=== PATIENT | male | born 1980 | race Caucasian/White ===

== ENCOUNTER 2021-02-08 10:17 | Outpatient (CLI) | payer OTHER, SELFPAY | END 2021-02-08 10:18 | disposition home or self-care (01) | LOC: ANHCOVIDVC 10:17 | PROVIDERS: PCP Nurse Practitioner Family | DX: Z23 Encounter for immunization (principal) | CPT/HCPCS: 0001A; 91300 ==

== ENCOUNTER 2021-03-01 10:09 | Outpatient (CLI) | payer OTHER, SELFPAY | END 2021-03-01 10:10 | disposition home or self-care (01) | LOC: ANHCOVIDVC 10:09 | PROVIDERS: PCP Nurse Practitioner Family | DX: Z23 Encounter for immunization (principal) | CPT/HCPCS: 0002A; 91300 ==

== ENCOUNTER 2021-07-26 14:22 | Emergency (ER) | payer OTHER, SELFPAY ==
--- NOTE | 2021-07-26 14:35 | ED.GENADULT ---
HPI - General Adult General Chief complaint: Upper Respiratory Infection Stated complaint: sinus infection Source: patient and family Mode of arrival: ambulatory Limitations: no limitations History of Present Illness HPI narrative: Patient is a 41-year-old male who presents to the [facility] via POV for evaluation of upper respiratory symptoms that have been present for 1 week. Additionally, patient reports dry cough, chest congestion, rhinorrhea, muffled hearing, green nasal drainage, sinus pain, and sinus pressure. He has taken Sudafed and leftover amoxicillin. He states he took 3 tabs over the past 2 days. Nothing improves symptoms. Laying down worsens symptoms. Patient reports he is fully vaccinated against Covid and denies known exposure to sick contacts. He is requesting a rapid Covid test today since he has 4 children at home. Related Data Allergies Allergy/AdvReac Type Severity Reaction Status Date / Time No Known Allergies Allergy Verified 07/26/21 15:23 Review of Systems Review of Systems: CONSTITUTIONAL: Denies fever, chills, or sweats. EYES: Denies visual changes, redness, or discharge. ENT: Denies rhinorrhea, sore throat, drooling, voice changes, sneezing, or otalgia. CARDIOVASCULAR: Denies chest pain, palpitations, or edema. RESPIRATORY: Denies sputum production, wheezing, dyspnea, cyanosis. GASTROINTESTINAL: Denies abdominal pain, nausea, vomiting, or diarrhea. SKIN: Denies rash or itching. MUSCULOSKELETAL: Denies back pain, joint pain, or myalgia. NEUROLOGIC: Denies headache, numbness, or weakness. PMFSH Comments I have reviewed and agree with the patient's past medical, surgical, social, and family hx as documented by the RN. There is no relevant family history pertinent to the presenting complaint. Exam Narrative: GENERAL: Well-appearing, well-nourished, and in no acute distress. HEAD: Normocephalic, atraumatic. No sinus tenderness or facial swelling appreciated. EYES: PERRLA and EOMI. No evidence of erythema, swelling, or drainage. ENT: Bilateral external ears and ear canals normal. Bilateral TMs are normal. No TM perforation. Nares clear, no rhinorrhea or epistaxis. Bilateral turbinates without erythema/ swelling. Mucous membranes moist and pink. Uvula is midline without erythema and swelling. No evidence of petechial rash, cobblestoning, lesions, ulcers, erythema, swelling, exudates, peritonsillar abscess, tenting, or drooling. Breath odor and voice normal. NECK: Supple. No Lymphadenopathy or nuchal rigidity appreciated. CHEST: Bilateral lung alonzo are clear to auscultation. No respiratory distress. No evidence of cough or pleuritic cp upon examination. HEART: Regular rate and rhythm. No murmur, gallop, or rub heard. EXTREMITIES: Normal range of motion. No edema. SKIN: Warm, dry, no rash. NEURO: No focal deficits. Alert and oriented x3. Special observations: Smiling. Complaints inconsistent with exam findings. Medical Decision Making Differential Diagnosis Differential Diagnosis: Allergic rhinitis, ABRS, acute viral sinusitis, strep pharyngitis, nasopharyngitis, bronchitis, pneumonia, AOM, otitis externa, viral URI, influenza Medical Records Medical records reviewed: Yes I reviewed the external patient's medical records. Vital Signs Vital Signs: Reviewed Lab Data Lab results reviewed: Yes I reviewed the patient's lab results. Lab results narrative: Rapid Covid: Negative Critical Care Time Critical Care Time Critical Care Time: No Discharge Plan Discharge Clinical Impression: Acute sinusitis, unspecified Qualifiers: Sinusitis location: unspecified location Recurrence: not specified as recurrent Qualified Code(s): J01.90 - Acute sinusitis, unspecified Allergic rhinitis Qualifiers: Allergic rhinitis trigger: unspecified Allergic rhinitis seasonality: seasonal Qualified Code(s): J30.2 - Other seasonal allergic rhinitis Patient Disposition: Home, Self-Care Condition: Stabl
[2021-07-26 14:36] VITALS: BP 136/79; PULSE 80; RESP 16; TEMP 35.8; O2SAT 99
== END 2021-07-26 15:45 | disposition home or self-care (01) ==
PROVIDERS: Emergency Provider Nurse Practitioner Family
DX: J01.90 Acute sinusitis, unspecified (principal); J30.2 Other seasonal allergic rhinitis; Z20.822 Contact with and (suspected) exposure to COVID-19
CPT/HCPCS: 87426; 99213; C9803; G0463

== ENCOUNTER 2022-01-24 18:32 | Emergency (ER) | payer OTHER, SELFPAY ==
[2022-01-24 18:41] VITALS: BP 145/94; PULSE 76; RESP 18; TEMP 37.2; O2SAT 97
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
[2022-01-24] MEDS: TETANUS,DIPHTHERIA,AC PERTUSSIS ADULT (0.5 ML) BOOSTRIX IM (18:59)
== END 2022-01-24 19:13 | disposition home or self-care (01) ==
PROVIDERS: Emergency Provider Nurse Practitioner Family; PCP Nurse Practitioner Family
DX: T23.201A Burn of second degree of right hand, unspecified site, initial encounter (principal); X19.XXXA Contact with other heat and hot substances, initial encounter; Z23 Encounter for immunization
CPT/HCPCS: 90471; 90715; 99213; G0463

== ENCOUNTER 2022-06-09 10:08 | Emergency (ER) | payer OTHER, SELFPAY ==
[2022-06-09 10:18] VITALS: BP 134/96; PULSE 69; RESP 16; TEMP 36.7; O2SAT 100
--- NOTE | 2022-06-09 10:47 | ED.URI ---
HPI - URI/Sore Throat General Chief Complaint: Upper Respiratory Infection Stated Complaint: Headache,Fever,Lightheaded,Chills Time Seen by Provider: 06/09/22 10:40 History of Present Illness HPI Narrative: Ty Connors, is a 41 yo male, with no PMH who comes to the [facility] care with a fever of 103, ear pain, severe headache that started yesterday and dizziness with movement. Reports sudden onset of feeling ill. demanded a flu test even though told is out of season Related Data Allergies Allergy/AdvReac Type Severity Reaction Status Date / Time No Known Allergies Allergy Verified 06/09/22 10:14 Review of Systems Review of Systems: CONSTITUTIONAL: reports fever, chills, sweats.has headache, dizziness EYES: Denies visual changes, redness, discharge. ENT: Denies rhinorrhea, congestion, sore throat, otalgia. CARDIOVASCULAR: Denies chest pain, palpitations, edema. RESPIRATORY: Denies dyspnea, wheezing, cough GASTROINTESTINAL: Denies abdominal pain, nausea, vomiting, diarrhea. GENITOURINARY: Denies dysuria, hematuria, abnormal discharge SKIN: Denies rash or itching. NEUROLOGIC: Denies numbness, or focal weakness. PSYCHIATRIC: Denies anxiety or depression. PMFSH Comments At time of signature, I agree with nursing past medical, surgical, social and family history. There is no relevant family history pertinent to the presenting complaint. Exam Narrative: GENERAL: This is a well-nourished, well-developed patient, in moderate distress. HEAD: normocephalic, atraumatic. EYES: Sclera clear/white. Vision is grossly intact. EARS: External ears normal, auditory canals clear and without drainage. Hearing grossly intact. NOSE: External nose normal without nasal discharge, nares without redness, no rhinorrhea. THROAT: Mucous membranes moist, posterior pharynx erythema NECK: Neck supple, non-tender CARDIOVASCULAR: Regular rate and rhythm without murmurs, gallops, or rubs. RESPIRATORY: Clear to auscultation. Breath sounds equal bilaterally. No wheezes, rales, or rhonchi. GASTROINTESTINAL: not done SKIN: warm, intact with no suspicious lesions or rash, good texture and turgor. NEURO: awake, alert, and oriented to person, place and time. There were no obvious focal neurologic abnormalities. Steady gait EXTREMITIES: Normal range of motion. BACK: Nontender without deformity Course Course Emergency Course: pt tested for flu and covid- both negative started on prednisone, zyrtec, zofran. rotate tylenol and ibuprofen polymixin ear drops Level of Care: Express Care Visit Vital Signs Vital signs: Vital Signs Temperature 98.0 F 06/09/22 10:18 Pulse Rate 69 06/09/22 10:18 Respiratory Rate 16 06/09/22 10:18 Blood Pressure 134/96 H 06/09/22 10:18 Pulse Oximetry 100 06/09/22 10:18 Oxygen Delivery Room Air 06/09/22 10:18 Temperature 98.0 F 06/09/22 10:18 Pulse Rate 69 06/09/22 10:18 Respiratory Rate 16 06/09/22 10:18 Blood Pressure 134/96 H 06/09/22 10:18 Pulse Oximetry 100 06/09/22 10:18 Oxygen Delivery Room Air 06/09/22 10:18 MDM - URI/Sore Throat Differential Diagnosis Differential diagnosis: Likely upper respiratory infection, viral infection, bronchitis, influenza, pharyngitis and other Lab Data Labs: Influenza A Screen Negative Reference Range: Negative Influenza B Screen Negative Reference Range: Negative Discharge Plan Discharge Clinical Impression: Upper respiratory infection Qualifiers: URI type: unspecified URI Qualified Code(s): J06.9 - Acute upper respiratory infection, unspecified Patient Disposition: Home, Self-Care Condition: Stable Instructions: Upper Respiratory Infection (DC) Additional Instructions: use solomontamir lorenzour for dizziness started on steroids, polymixin, zyrtec, rotate ibuprofen and tylenol hydrate well Pre
[2022-06-09] MEDS: MECLIZINE HCL 25 MG TABLET PO (10:50)
[2022-06-09] MEDS: ONDANSETRON HCL ODT 4 MG TABLET PO (10:50)
== END 2022-06-09 11:05 | disposition home or self-care (01) ==
PROVIDERS: Emergency Provider Nurse Practitioner; PCP Nurse Practitioner Family
DX: J06.9 Acute upper respiratory infection, unspecified (principal); Z20.822 Contact with and (suspected) exposure to COVID-19; Z86.16 Personal history of COVID-19; Z96.698 Presence of other orthopedic joint implants
CPT/HCPCS: 87426; 87804; 99213; A9270; C9803; G0463

== ENCOUNTER 2023-06-24 10:05 | Emergency (ER) | payer OTHER, SELFPAY ==
--- NOTE | 2023-06-24 10:17 | ED.GENADULT ---
HPI - General Adult General Chief complaint: Upper Respiratory Infection Stated complaint: Cough Time Seen by Provider: 06/24/23 10:17 Source: patient Mode of arrival: ambulatory Limitations: no limitations History of Present Illness HPI narrative: 42-year-old male patient presents to the [facility] with complaints of cough for the past 2 weeks. Denies fevers, body aches or chills. Denies any chest pain, shortness of breath denies any abdominal pain, nausea, vomiting or diarrhea. Patient states he has not really taking any medication for his symptoms. Patient states he does travel a lot. Patient states that the cough is worse when he lays down at night and when he gets up in the morning. Patient states he has been coughing up some green and brown phlegm at times. Related Data Allergies Allergy/AdvReac Type Severity Reaction Status Date / Time No Known Allergies Allergy Verified 06/24/23 10:20 Review of Systems Review of Systems: CONSTITUTIONAL: Denies fever, chills, or sweats. EYES: Denies visual changes, redness, or discharge. ENT: Positive rhinorrhea, congestion, denies sore throat, or otalgia. CARDIOVASCULAR: Denies chest pain, palpitations, or edema. RESPIRATORY: positive cough denies dyspnea. GASTROINTESTINAL: Denies abdominal pain, nausea, vomiting, or diarrhea. GENITOURINARY: Denies dysuria or hematuria. SKIN: Denies rash or itching. MUSCULOSKELETAL: Denies back pain, joint pain, or myalgia. NEUROLOGIC: Denies headache, numbness, or weakness. PSYCHIATRIC: Denies anxiety or depression. [facility] Surgical History Surgical History (Updated 06/24/23 @ 10:18 by TONY Wolfe) H/O Spinal surgery History of orthopedic surgery left knee and clavicle replacement Comments At the time of my signature I agree with nursing past medical history, surgical, social, and family history. There is no relevant family history pertinent to the presenting complaint. Exam Narrative: GENERAL: Well-appearing, well-nourished, and in no acute distress. HEAD: Normocephalic, atraumatic. EYES: PERRLA and EOMI. ENT: Nares with erythema edema noted bilaterally, no rhinorrhea or epistaxis. Mucous membranes moist. posterior pharynx with no erythema, tonsillar enlargement, exudates or lesions present. NECK: Supple. No lymphadenopathy CHEST: Clear to auscultation. No respiratory distress. HEART: Regular rate and rhythm. No murmur heard. Normal peripheral pulses. ABDOMEN: Soft, nontender, nondistended, normal active bowel sounds. EXTREMITIES: Normal range of motion. No edema. SKIN: Warm, dry, no rash. NEURO: No focal deficits. Alert and oriented x3. Course Course Level of Care: Express Care Visit Vital Signs Vital signs: Vital Signs Temperature 36.5 C 06/24/23 10:39 Pulse Rate 67 06/24/23 10:39 Respiratory Rate 18 06/24/23 10:39 Blood Pressure 143/87 H 06/24/23 10:39 Pulse Oximetry 100 06/24/23 10:39 Oxygen Delivery Room Air 06/24/23 10:39 Temperature 36.5 C 06/24/23 10:39 Pulse Rate 67 06/24/23 10:39 Respiratory Rate 18 06/24/23 10:39 Blood Pressure 143/87 H 06/24/23 10:39 Pulse Oximetry 100 06/24/23 10:39 Oxygen Delivery Room Air 06/24/23 10:39 vital signs reviewed. The patient has been informed that they may have pre-hypertension or Hypertension based on a BP reading in the department. I recommend that the patient call the primary care provider listed on their discharge instructions or a physician of their choice this week to arrange follow up for further evaluation of possible pre-hypertension or Hypertension Medical Decision Making MDM Narrative Medical decision making narrative: Plan care for patient is to discharge home with short course of steroids to help with the sinus drainage, daily antihistamine and some Tessalon Perles for the cough. Discussed with patient this most likely viral most likely caused by allergies no antibiotic is needed at this time.
[2023-06-24 10:39] VITALS: BP 143/87; PULSE 67; RESP 18; TEMP 36.5; O2SAT 100
== END 2023-06-24 11:35 | disposition home or self-care (01) ==
PROVIDERS: Emergency Provider Nurse Practitioner Family; PCP Nurse Practitioner Family
DX: J06.9 Acute upper respiratory infection, unspecified (principal)
CPT/HCPCS: 99213; G0463

== ENCOUNTER 2025-05-27 11:32 | Emergency (ER) | payer OTHER, SELFPAY ==
--- NOTE | ~2025-05-27 | XR_ITS ---
HISTORY: neck pain, glf, hx fusion COMPARISON: None TECHNIQUE: 3 views of the cervical spine were performed FINDINGS: Visualization of the cervical spine to the superior endplate of T1 (including swimmer's view). Straightening of the normal curvature of the cervical spine is identified. No prevertebral soft tissue swelling is appreciated. No acute compression fracture is noted. Anterior fixation is identified at the levels of C6 and C7 with intervertebral disc spacer The dens is equidistant between the pillars, without asymmetry. Air column within the trachea is midline. The visualized portions of the bilateral upper lung alonzo are unremarkable. IMPRESSION: Straightening of the normal curvature of the cervical spine without acute compression fracture, as de tailed above. Reviewed, dictated and finalized at location A. IMPRESSION: Straightening of the normal curvature of the cervical spine without acute compr ession fracture, as detailed above.
[2025-05-27 11:42] VITALS: BP 106/78; PULSE 78; RESP 16; TEMP 36.1; O2SAT 100
--- OUTSIDE RECORDS SUMMARY | 2025-05-27 11:55 | XMS_ITS | Clinical Summary ---
Author Organization [facility] Address [address] [place] [address] Care Team Providers Care Training Personnel Supervisor Name Role Phone Cheyenne Klein UPHOLSTERER OUTSIDE Primary Care Provider + Allergies No known active allergies Medications cholecalciferol (VITAMIN D-3) 50,000 unit capsuleIndicati ons:Vitamin D Deficiency Take 1 capsule (50,000 Units total) by mouth once a week for 8 doses 8 capsule 4 Active HYDROcodone-melonie taminophen (NORCO) 10-325 mg per tabletIndicatio ns:Pain Take 1 tablet by mouth every 4 (four) hours as needed for pain 40 tablet 4 Active Additional Information Patient not taking.Reported on 12/15/2024 cyclobenzaprine (FLEXERIL) 10 mg tablet Take 1 tablet (10 mg total) by mouth 3 (three) times a day as needed for muscle spasms 42 tablet 4 Active Additional Information Patient not taking.Reported on 12/15/2024 Active Problems Problem Noted Date Diagnosed Date Herniated disc, cervical 03/31/2024 Numbness and tingling in right hand 03/31/2024 Complex tear of medial menis cus of right knee as current injury 05/24/2021 Overview (05/24/2021): Added automatically from request for surgery [id number] Acute bronchitis 05/23/2021 External hordeolum 05/23/2021 Furuncle of groin 05/23/2021 Osteoarthritis of cervical spine 12/03/2017 Encounters Date Type Department Care Team Description 04/09/2025 Telephone [facility] Scheduling [address] [place] [address] Frieda Fisher from Last 3 Months Surgical History Surgery Date Site/Laterality Comments EPIDURAL INJECTION LUMBOSACRAL 05/11/2015 N/A DISCECTOMY 2011, 2012, 2012 L5 x3 surgeries MENISCUS SURGERY 10/29/1996 - 10/28/1997 Left x2 CLAVICLE SURGERY 10/29/2003 - 10/28/2004 Left metal plate EPIDURAL INJECTION RIGHT CERVICAL THORACIC 1 LEVEL 03/18/2024 Right Medical History Medical History Date Comments Herniated cervical disc Osteoarthritis of cervical spine Family History Medical History Relation Name Comments Cancer Father Family history of malignant neoplasm - (Added by TW Conv) Anesthesia problems Neg Hx Relation Name Status Comments Father Social History Tobacco Use Types Packs/Day Years Used Date Smoking Tobacco: Never Smokeless Tobacco: Never Tobacco Cessation:Counseling Given: No AUDIT-C Answer Date Recorded Q1: How often do you have a drink containing alc ohol? 2-3 times a week 10/10/2024 Q2: How many drinks containi ng alcohol do you have on a typical day when you are drinking? 1 or 2 10/10/2024 Q3: How often do you have si x or more drinks on one occasion? Never 10/10/2024 Personal Safety Answer Date Recorded Have you ever been in or are you currently in a harmful physical or emotional relationship or is someone making you feel afraid or unsafe? Denies 10/20/2024 Sex and Gender Information Value Date Recorded Sex Assigned at Not on file Legal Sex Male 9:07 PM DRAMA CRITIC Gender Identity Not on file Sexual Orientation Not on file Obstetrics History Last Filed Vital Signs Vital Sign Reading Time Taken Comments Blood Pressure 139/92 10/20/2024 2:00 PM DRAMA CRITIC Pulse 64 10/20/2024 2:00 PM DRAMA CRITIC Temperature 36.3 C (97.4 F) 10/20/2024 10:50 AM DRAMA CRITIC Respiratory Rate 17 10/20/2024 2:00 PM DRAMA CRITIC Oxygen Saturation 96% 10/20/2024 2:00 PM DRAMA CRITIC Inhaled Oxygen Concentration - - Weight 80.3 kg (177 lb) 12/15/2024 3:18 PM DRAMA CRITIC Height 175.3 cm (5' 9) 12/15/2024 3:18 PM DRAMA CRITIC Body Mass Index 26.14 12/15/2024 3:18 PM DRAMA CRITIC Plan of Treatment Health Maintenance Due Date Last Done Comments Depression Screening 1980 Hepatitis C Screening 1980 Varicella Vaccines (1 of 2 - 13+ 2-dose series) 1993 Hepatitis B Screening 1998 Regular Well Visit/Exam 18-64 1998 HPV Vaccines (1 - 3-dose SCD M series) 2007 Influenza Vaccine (#1) 2025 DTaP/Tdap/Td Vaccine (2 - Td or Tdap) 01/10/2028 01/09/2018 Pneumococcal vaccine <65 Aged Out No longer eligible based on patient's age to complete this topic Medical Devices Implanted Type Area Landscape Architect Device Identifier Shelf Expiration Date Model / Serial / Lot [employer] Graft Bone Spacer Cervical Fd [employer] [id number] Allograft [id number] - [id number] - [id number] Implanted:Qty: 1 on 10/20/2024 by Lencho Barnett MD at [facility] N/A: Spine Cervical [employer] Inc 08/21/2026 [id number] / [id number] / [employer] Plate Bone Level-1 Cervical Spine 12mm 300-0112 - [id number] Implanted:Qty: 1 on 10/20/2024 by Lencho Barnett MD at [facility] N/A: Spine Cervical [employer] 300-0112 / / [employer] Screw Spinal Anterior Cervical Self Drilling Solid 4x16mm Titanium [id number] - [id number] Implanted:Qty: 4 on 10/20/2024 by Lencho Barnett MD at [facility] N/A: Spine Cervical [employer] [id number] / / Insurance AETNA [facility] HMO [facility] HMO [facility] HMO Care Teams Training Personnel Supervisor Relationship Specialty Start Date End Date Cheyenne Klein NP PCP - General Nurse Practitioner 05/03/21
--- OUTSIDE RECORDS SUMMARY | 2025-05-27 11:55 | XMS_ITS | Referral Summary ---
Author Organization [facility] Address [address] [place] [address] Care Team Providers Care Chief Data Officer Name Role Phone Cheyenne Klein CHEF DE PARTIE Primary Care Provider + Encounters Date Type Department Care Team Description 04/09/2025 Telephone [facility] Scheduling [address] [place] [address] Frieda Fisher from Last 3 Months Allergies No known active allergies Medications cholecalciferol [...] (05/24/2021): Added automatically from request for surgery [id number] Acute bronchitis 05/23/2021 External hordeolum 05/23/2021 Furuncle of groin 05/23/2021 Osteoarthritis of cervical spine 12/03/2017 Social History Tobacco Use Types Packs/Day Years [...] on file Legal Sex 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 TEST ENGINEER Gender Identity Not on file Sexual Orientation Not on file Last Filed Vital Signs Vital Sign Reading Time Taken Comments Blood Pressure 139/92 10/20/2024 2:00 PM ELECTRONICS TEST ENGINEER Pulse 64 10/20/2024 2:00 PM ELECTRONICS TEST ENGINEER Temperature 36.3 C (97.4 F) 10/20/2024 10:50 AM ELECTRONICS TEST ENGINEER Respiratory Rate 17 10/20/2024 2:00 PM ELECTRONICS TEST ENGINEER Oxygen Saturation 96% 10/20/2024 2:00 PM ELECTRONICS TEST ENGINEER Inhaled Oxygen Concentration - - Weight 80.3 kg (177 lb) 12/15/2024 3:18 PM ELECTRONICS TEST ENGINEER Height 175.3 cm (5' 9) 12/15/2024 3:18 PM ELECTRONICS TEST ENGINEER Body Mass Index 26.14 12/15/2024 3:18 PM ELECTRONICS TEST ENGINEER Plan of Treatment Not on file Medical Devices Implanted Type Area Manager Reimbursement Device Identifier Shelf Expiration Date Model / Serial / Lot [employer] Graft Bone Spacer Cervical Fd [employer] [id number] Allograft [id number] - [id number] - [id number] Implanted:Qty: 1 on 10/20/2024 by Lencho Barnett MD at [facility] N/A: Spine Cervical [employer] 08/21/2026 [id number] / [id number] / [employer] Plate Bone Level-1 Cervical Spine 12mm 300-0112 - [id number] Implanted:Qty: 1 on 10/20/2024 by Lencho Barnett MD at [facility] N/A: Spine Cervical [employer] 300-0112 / / [employer] Screw Spinal Anterior Cervical Self Drilling Solid 4x16mm Titanium [id number] - [id number] Implanted:Qty: 4 on 10/20/2024 by Lencho Barnett MD at [facility] N/A: Spine Cervical [employer] [id number] / / Insurance [facility] [employer] HMO AET [place] HMO AETNA [facility] HMO Care Teams Chief Data Officer Relationship Specialty Start Date End Date Cheyenne Klein NP PCP - General Nurse Practitioner 05/03/21
--- NOTE | 2025-05-27 12:06 | ED_ITS ---
HPI - Ear Problem General Chief complaint: Ear Stated complaint: LT Ear Pain / Neck and Back Pain Time Seen by Provider: 05/27/25 12:06 Source: patient Mode of arrival: ambulatory Limitations: no limitations History of Present Illness HPI Narrative: 44 y/o male presented for c/o left ear pain x2 days, says it is tender when touched. Denies ear drainge, tinnitus, dizziness, or nasal congestion. Pt also reports right sided neck pain. Onset yesterday while playing golf. Says after a swing he felt a pull. Since then the neck has become more stiffTook ibuprofen last night. denies numbness, tingling or weakness of the arms. Hx cervical fusion C6-7 last Sep. Complaint: ear pain Related Data Allergies Allergy/AdvReac Type Severity Reaction Status Date / Time No Known Allergies Allergy Verified 06/24/23 10:20 Review of Systems Review of Systems: CONSTITUTIONAL: Denies malaise, chills, or fever. EYES: Denies visual changes, redness, or discharge. ENT: Denies rhinorrhea, congestion, sinus pain, and sore throat. Reports ear p ain CARDIOVASCULAR: Denies chest pain, palpitations, or edema. RESPIRATORY: Denies cough or dyspnea. GASTROINTESTINAL: Denies abdominal pain, nausea, vomiting, diarrhea SKIN: Denies rash or itching. MUSCULOSKELETAL: reports neck pain NEUROLOGIC: Denies headache. All systems reviewed & are unremarkable except as noted in HPI and below PMFSH Surgical History Surgical History (Updated 06/24/23 @ 10:18 by TONY Wolfe) H/O Spinal surgery History of orthopedic surgery left knee and clavicle replacement Comments At time of signature, agree with nursing past medical, surgical, social and family history. There is no relevant family history pertinent to the presenting complaint Exam Narrative: GENERAL: Well-appearing and in no acute distress. HEAD: Normocephalic EYES: conjunctivae clear ENT: Nares clear. Mucous membranes moist. Right TM normal light reflex. Left TM erythematous, bulging and intact; canal erythematous with swelling noted, tende r, left tragal tenderness, no drainage. Oropharynx not erythematous without lesions. no drooling, no hoarseness, no trismus, uvula midline. NECK: No VPT. Decreased ROM due to pain. Mild right paraspinal tenderness with palpation. Supple. No lymphadenopathy CHEST: Clear to auscultation, breath sounds equal. HEART: Regular rate and rhythm. No murmur heard. SKIN: Warm, dry, no rash. NEURO: Alert and oriented x3. PSYCH: Normal mood and affect Course Course Emergency Course: Patient is aware of diagnosis, understands and agrees to treatment plan. Anticipatory guidance given. Patient agrees to follow-up as directed and is aware of reasons to seek care at the emergency department. Portions of this record may have been created with voice recognition software Level of Care: Express Care Visit Vital Signs Vital signs: Vital Signs Temperature 97.0 F L 05/27/25 11:42 Pulse Rate 78 05/27/25 11:42 Respiratory Rate 16 05/27/25 11:42 Blood Pressure 106/78 05/27/25 11:42 Pulse Oximetry 100 05/27/25 11:42 Oxygen Delivery Room Air 05/27/25 11:42 Temperature 97.0 F L 05/27/25 11:42 Pulse Rate 78 05/27/25 11:42 Respiratory Rate 16 05/27/25 11:42 Blood Pressure 106/78 05/27/25 11:42 Pulse Oximetry 100 05/27/25 11:42 Oxygen Delivery Room Air 05/27/25 11:42 Reviewed Medical Decision Making MDM Narrative Medical decision making narrative: Discussed physical exam findings consistent with left otitis media, will also treat for otitis externa given the swelling and tragal tenderness. Shared decision making, will get c-spine xray due to recent history of cervical fusion. Reviewed x-ray with patient. Reviewed RX. Advised supportive measures and signs/symptoms to go to the ER. Patient is appropriate for outpatient treatment and follow-up. Differential Diagnosis Differential Diagnosis: Coronavirus, strep pharyngitis, allergic rhinitis, upper respiratory tract infection, sinusitis, rhinosinusitis, nasopharyngitis, viral pharyngitis, otitis media, otitis externa, eustachian tube dysfunction, foreign body, cerumen impaction. Vital Signs Vital Signs: Vital Signs Temperature 97.0 F L 05/27/25 11:42 Pulse Rate 78 05/27/25 11:42 Respiratory Rate 16 05/27/25 11:42 Blood Pressure 106/78 05/27/25 11:42 Pulse Oximetry 100 05/27/25 11:42 Oxygen Delivery Room Air 05/27/25 11:42 Temperature 97.0 F L 05/27/25 11:42 Pulse Rate 78 05/27/25 11:42 Respiratory Rate 16 05/27/25 11:42 Blood Pressure 106/78 05/27/25 11:42 Pulse Oximetry 100 05/27/25 11:42 Oxygen Delivery Room Air 05/27/25 11:42 Imaging Data Radiologist's impression: Patient: Cole Trinidad : 1980 MR#: [id number] Age: 44 Acct:[id number] Loc: [facility] ADM Date: 05/27/25Attending Dr: HISTORY: neck pain, glf, hx fusion COMPARISON: None TECHNIQUE: 3 views of the cervical spine were performed FINDINGS: Visualization of the cervical spine to the superior endplate of T1 (including swimmer's view). Straightening of the normal curvature of the cervical spine is identified. No prevertebral soft tissue swelling is appreciated. No acute compression fracture is noted. Anterior fixation is identified at the levels of C6 and C7 with intervertebral disc spacer The dens is equidistant between the pillars, without asymmetry. Air column within the trachea is midline. The visualized portions of the bilateral upper lung alonzo are unremarkable. IMPRESSION: Straightening of the normal curvature of the cervical spine without acute compression fracture, Discharge Plan Discharge Clinical Impression: Otitis media Qualifiers: Otitis media type: suppurative Chronicity: acute Laterality: left Recurrence: non-recurrent Spontaneous tympanic membrane rupture: without spontaneous rupture Qualified Code(s): H66.002 - Acute suppurative otitis media without spontaneous rupture of ear drum, left ear Otitis externa Qualifiers: Otitis externa type: unspecified type Chronicity: acute Laterality: left Quali fied Code(s): H60.502 - Unspecified acute noninfective otitis externa, left ear Acute strain of neck muscle Qualifiers: Encounter type: initial encounter Qualified Code(s): S16.1XXA - Strain of muscle, fascia and tendon at neck level, initial encounter Patient Disposition: Home Condition: Stable Instructions: Antibiotic Form, Cervical Strain (ED), Ear Infection (ED) Additional Instructions: Ear: --Swimmer's ear is an infection in the outer ear canal, which runs from your eardrum to the outside of your head. It's often caused by water that remains in your ear, creating a moist environment that encourages the growth of bacteria. Take antibiotic drops and pills as directed. Tylenol and ibuprofen every 8 hours as needed to reduce fever, pain Avoid water or anything into the ear for one week Neck: Rest. Avoid pushing, pulling, lifting or anything that worsens the symptoms Take ibuprofen as prescribed Take the muscle relaxer as previously prescribed; they can cause drowsiness so do not drive until you know how they make you feel Alternate ice/heat to the site. Lidocaine or salon pas pain patch or use pain cream like icy/hot or biofreeze etc Follow up with your primary care provider as needed in 1 week Go to the ER for worsening symptoms or concerns Patient Language: Macedonian Prescriptions: New ibuprofen 800 mg tablet 800 mg PO TID PRN (Reason: pain) Qty: 15 0RF amoxicillin-pot clavulanate 875-125 mg tablet 1 tablet PO Q12H 7 Days Qty: 14 0RF ciprofloxacin-dexamethasone 0.3-0.1 % drops,suspension 4 drp LEFT EAR Q12H 7 Days Qty: 7.5 0RF Follow-up/Referrals: Cheyenne Klein APRN [Primary Care Provider] - Time of Disposition: 12:43
== END 2025-05-27 12:47 | disposition home or self-care (01) ==
PROVIDERS: Emergency Provider Nurse Practitioner Family; PCP Nurse Practitioner Family
DX: H66.002 Acute suppurative otitis media without spontaneous rupture of ear drum, left ear (principal); H60.502 Unspecified acute noninfective otitis externa, left ear; S16.1XXA Strain of muscle, fascia and tendon at neck level, initial encounter; X50.9XXA Other and unspecified overexertion or strenuous movements or postures, initial encounter; Y93.53 Activity, golf
CPT/HCPCS: 72040; 99213; G0463